=== PATIENT | female | born 1950 ===

== ENCOUNTER 2024-04-02 13:37 | Outpatient (CLI) | payer MEDICARE, SELFPAY ==
--- NOTE | ~2024-04-02 | CT_ITS ---
EXAMINATION: CT lung screening DATE: 04/02/2024 13:50 INDICATION: hx of nicotine dependence TECHNIQUE: Computed tomography (CT) of the chest was performed without intravenous contrast. Addition al 3D reconstructions utilizing coronal maximum intensity projection (MIP) were performed. Automated exposure control and iterative reconstruction technique were employed. The dose-length product was 37 .20 mGy-cm. COMPARISON: None FINDINGS: Mild emphysema. Calcified nodules in the right middle and upper lobes and calcified mediastinal lymph nodes consistent with old granulomatous disease. There are few scattered bilateral <5 mm pulmonary n odules in both lungs, several clustered with tree-in-bud pattern in the anterior segment of the left upper lobe consistent with endobronchial spread of disease. No pulmonary edema or pleural effusion. H eart size is normal. Atherosclerotic coronary artery calcification. Thoracic aorta is normal in calib er. No pathologically enlarged thoracic lymphadenopathy. Bilateral breast implants with some peripher al capsular calcification. Mild pectus excavatum. Moderate thoracolumbar dextroscoliosis with severe spondylosis. IMPRESSION: 1. . Lung-RADS category 2: Benign appearance or behavior. Continue annual screening with noncontrast low-dose chest CT in 12 months. Reviewed, dictated and finalized at location A. IMPRESSION: 1. . Lung-RADS category 2: Benign appearance or behavior. Continue annual scree les with noncontrast low-dose chest CT in 12 months.
== END 2024-04-02 13:38 ==
PROVIDERS: PCP Internal Medicine; Visit Provider Internal Medicine
DX: Z12.2 Encounter for screening for malignant neoplasm of respiratory organs (principal); Z87.891 Personal history of nicotine dependence
CPT/HCPCS: 71271

== ENCOUNTER 2025-06-19 11:22 | Outpatient (CLI) | payer MEDICARE, SELFPAY ==
--- NOTE | ~2025-06-19 | CT_ITS ---
EXAMINATION: CT lung screening DATE: 06/19/2025 11:55 INDICATION: Personal hx of nicotine dependence TECHNIQUE: Computed tomography (CT) of the chest was performed without intravenous contrast. Additional 3D reconstructions utilizing coronal maximum intensity projection (MIP) were performed. Automated exposure control and iterative reconstruction technique were employed. The dose-length product was 35 .97 mGy-cm. COMPARISON: 04/02/2024 FINDINGS: Mild emphysema. Large calcified right middle lobe nodule, smaller calcified nodule in the right upper lobe and calcified mediastinal lymph nodes consistent with old granulomatous disease. No interval change in a few <4 mm pulmonary nodules in both lungs including several clustered with tree-in-bud pattern in the anterior segment of the left upper lobe. Mild discoid atelectasis/scarring in the medial aspect of the intersegment of the right upper lobe and in the lateral basilar segment of the left lower lobe. No pneumonia, pulmonary edema or pleural effusion. Heart size is normal. Atherosclerotic coronary artery calcific location. No pericardial effusion. Thoracic aorta is normal in caliber. Bilatera l breast implants. Mild pectus excavatum. Moderate thoracolumbar dextro scoliosis with severe spondylosis. Multiple surgical clips in the region of the absent right kidney consistent with prior right nephrectomy. IMPRESSION: 1. Lung-RADS category 2: Benign appearance or behavior. Continue annual screening with noncontrast low-dose chest CT in 12 months. Reviewed, dictated and finalized at location A. ION COOK IMPRESSION: 1. Lung-RADS category 2: Benign appearance or behavior. Continue annual screeni ng with noncontrast low-dose chest CT in 12 months.
== END 2025-06-19 11:23 | disposition home or self-care (01) ==
LOC: MICIMG 11:23
PROVIDERS: PCP Internal Medicine; Visit Provider Internal Medicine
DX: Z12.2 Encounter for screening for malignant neoplasm of respiratory organs (principal); Z87.891 Personal history of nicotine dependence
CPT/HCPCS: 71271